=== PATIENT | female | born 1995 | race Caucasian/White ===

== ENCOUNTER 2020-02-05 08:15 | Emergency (ER) | payer OTHER, SELFPAY ==
[~2020-02-05] VITALS: Ht 167.6 cm; Wt 67.1 kg
[2020-02-05 08:15] VITALS: BP_SYST 138
--- NOTE | 2020-02-05 08:20 | NUR ---
Pt placed on tent for evaluation , Dr Bonilla notified.
--- NOTE | 2020-02-05 08:22 | NUR ---
Pt brought by self, A&Ox4, ampbulatory ,pt presents to ER with sore throat and mild SOB, pt also has persistent cough,pt states she was diagnosed with positive covid on January, Vitals WNL, afebrile, skin pink and warm,respirations even and unlabored, cap refill <3,
--- NOTE | 2020-02-05 08:40 | NUR ---
Dr Bonilla evaluating patient in the Tent.
--- NOTE | 2020-02-05 08:45 | NUR ---
Pt ambulated for X-ray , stable gait, no s/s of distress
[2020-02-05 09:20] VITALS: BP_SYST 132
--- NOTE | 2020-02-05 09:21 | NUR ---
Patient given written and verbal discharge instructions and verbalizes understanding. ER MD discussed with patient the results and treatment provided. Patient in stable condition. ID arm band removed. Rx of Promethazine given. Patient educated on pain management and to follow up with PMD. Pain Scale 2/10. Opportunity for questions provided and answered. Medication side effect fact sheet provided.
== END 2020-02-05 09:21 | disposition home or self-care (01) ==
LOC: SED 08:15
DX: U07.1 COVID-19 (principal); J40 Bronchitis, not specified as acute or chronic
CPT/HCPCS: 71045; 99283